=== PATIENT | female | born 1970 | race Caucasian/White ===

== ENCOUNTER 2021-07-20 23:25 | Inpatient (IN) | payer BC, SELFPAY ==
[~2021-07-20] VITALS: Ht 172.7 cm; Wt 78.5 kg
[2021-07-20 23:30] VITALS: BP 88/42
--- NOTE | 2021-07-20 23:30 | NUR ---
PT [facility]. TAKEN TO BED 9
--- NOTE | 2021-07-20 23:31 | NUR ---
Patient BIB by ALS from facility. C/O low blood pressure x today. Per reported, staff reported , patient had low blood pressure, started IV 18 G right forearm and given NSS bolus at the scence. Patient came to ER
--- NOTE | 2021-07-20 23:31 | NUR ---
When patient arrived to ER- Patient unable to speak, severe weakness right side. Called ERMTyree.
--- NOTE | 2021-07-20 23:32 | NUR ---
Dr. Alcaraz examining patient.
[2021-07-20] MEDS ORDERED: NACL 0.9% 2,000 ML IV ONE (23:40)
--- NOTE | 2021-07-20 23:44 | NUR ---
CODE BRAIN INITIATED. RADIOLOGY AWARE
--- NOTE | 2021-07-20 23:46 | NUR ---
PT TAKEN TO CT
--- NOTE | 2021-07-20 23:48 | NUR ---
CXR at bedside.
--- NOTE | 2021-07-21 00:04 | NUR ---
PT RETURN FROM CT
--- NOTE | 2021-07-21 00:05 | NUR ---
After patient came back from CT scan with Raiology tech and RN. Patient started woke up. A/O,X2, -see [facility] stoke assessment and Neuro assessment.
[2021-07-21 00:24] LABS: BASOPHILS % (AUTO) 0.4 % (0.0-2.0); EOSINOPHILS # (AUTO) 0.2 K/uL (0-0.4); EOSINOPHILS % (AUTO) 1.8 % (0.0-4.0); HEMATOCRIT 29.1 % (36-48); HEMOGLOBIN 9.1 g/dL (12.0-16.0); LYMPHOCYTES # (AUTO) 2.9 K/uL (2.5-16.5); LYMPHOCYTES % (AUTO) 28.5 % (20.5-51.1); MEAN CORPUSCULAR HEMOGLOBIN 22 pg (27-31); MEAN CORPUSCULAR HGB CONC 31 g/dL (33-37); MEAN CORPUSCULAR VOLUME 69.6 fL (80-94); MONOCYTES # (AUTO) 0.6 K/uL (0.8-1.0); MONOCYTES % (AUTO) 5.7 % (1.7-9.3); NEUTROPHILS # (AUTO) 6.5 K/uL (1.8-7.7); NEUTROPHILS % (AUTO) 63.6 % (42.2-75.2); PLATELET COUNT (AUTO) 635 K/uL (140-450); RED BLOOD CELL COUNT(AUTO) 4.17 MIL/uL (4.20-5.40); RED CELL DISTRIBUTION WIDTH 17.1 % (11.6-13.7); WHITE BLOOD COUNT (AUTO) 10.2 K/uL (4.8-10.8)
--- NOTE | 2021-07-21 00:25 | NUR ---
# 16 FR Austin catheter with 10 ml utilizing sterile technique. Immediate return of 20 ml yellow, clear urine noted. Bedside drainage bag placed below level of bladder. Urine sample collected and sent to lab. Pt tolerated procedure well.
[2021-07-21] MEDS ORDERED: PIPERACILLIN/TAZOBACTAM 3.375 GM in DEXTROSE 5% 50 ML IV ONE (00:35)
[2021-07-21] MEDS ORDERED: VANCOMYCIN 1,000 MG in DEXTROSE 5% 250 ML IV ONE (00:35)
[2021-07-21 00:40] LABS: APPEARANCE,URINE CLEAR (CLEAR); BILIRUBIN,URINE NEGATIVE (NEGATIVE); BLOOD, URINE NEGATIVE (NEGATIVE); COLOR,URINE YELLOW (YELLOW); LEUKOCYTE ESTERASE ,URINE TRACE (NEGATIVE); NITRITE, URINE POSITIVE (NEGATIVE); PH,URINE 5.5 (5.0-9.0); UGLUCOSE NEGATIVE (NEGATIVE)
[2021-07-21] MEDS ORDERED: PIPERACILLIN/TAZOBACTAM 3.375 GM VIAL IV ONE (00:43)
--- NOTE | 2021-07-21 00:46 | NUR ---
TELENEURO INITIATED PER DR. WEEKS
[2021-07-21 00:54] LABS: RBC,URINE 0-5 /HPF (0-5); WBC,URINE 60-80 /HPF (0-5)
[2021-07-21 00:57] LABS: BARBITURATE, URINE NEGATIVE ng/ml (NEG <=200)
--- NOTE | 2021-07-21 00:57 | NUR ---
RETURN CALL FROM NEUROLOGIST WHO SPOKE WITH DR. WEEKS
[2021-07-21 00:58] LABS: BENZODIAZEPINE, URINE POSITIVE ng/mL (NEG <=200); CANNABINOID, URINE NEGATIVE ng/mL (NEG <=50); COCAINE, URINE NEGATIVE ng/mL (NEG <=300); OPIATE, URINE POSITIVE ng/mL (NEG <=2000); PHENCYCLIDINE SCREEN,URINE NEGATIVE ng/mL (NEG <=25)
--- NOTE | 2021-07-21 01:02 | NUR ---
TELENEURO SPEAKING WITH PT
[2021-07-21 01:04] LABS: ALBUMIN 2.9 g/dL (3.4-5.0); ANION GAP 14.7 (8-16); CARBON DIOXIDE 23.3 mmol/L (21-32); CREATININE 1.5 mg/dL (0.6-1.3); TOTAL BILIRUBIN 0.5 mg/dL (0.0-1.0)
[2021-07-21] MEDS ORDERED: VANCOMYCIN 1,000 MG VIAL ONE (01:18)
--- NOTE | 2021-07-21 01:28 | NUR ---
COVID-19 swabs collected and sent to lab.
[2021-07-21] MEDS ORDERED: KETOROLAC 30 MG/ML VIAL IVP ONE (02:10)
--- NOTE | 2021-07-21 02:24 | NUR ---
Dr. Alcaraz at bedside to explain results and treatment plans.
[2021-07-21] MEDS ORDERED: DOCUSATE SODIUM 100 MG GELCAP PO PRN (02:30)
[2021-07-21] MEDS ORDERED: POTASSIUM CHLORIDE 10 MEQ TABER PO PRN (02:30)
[2021-07-21] MEDS ORDERED: MAGNESIUM OXIDE 400 MG TAB PO PRN (02:30)
[2021-07-21] MEDS ORDERED: ONDANSETRON 4 MG/2 ML VIAL IM/IVP PRN (02:30)
[2021-07-21] MEDS ORDERED: ACETAMINOPHEN 325 MG TAB PO PRN (02:30)
[2021-07-21] MEDS ORDERED: SODIUM PHOS / POTASSIUM PHOS 1 PKT PDR PO PRN (02:30)
[2021-07-21] MEDS ORDERED: LEVO0.1211 PO (02:48)
[2021-07-21] MEDS ORDERED: SYN.05 PO (02:48)
[2021-07-21] MEDS ORDERED: LISI-486 PO (02:48)
[2021-07-21] MEDS ORDERED: INSU100S45 SUBQ (02:48)
--- NOTE | 2021-07-21 02:48 | NUR ---
Reconcile Med reviewed.
--- NOTE | 2021-07-21 03:04 | NUR ---
Patient refused to stay in hospital. Dr. Alcaraz notified.
--- NOTE | 2021-07-21 03:07 | NUR ---
Report given to GARTH Cherry (Tele Nurse)
--- NOTE | 2021-07-21 03:15 | NUR ---
Dr. Alcaraz spoke with patient and explain that patient can not release from hospital.
--- NOTE | 2021-07-21 03:21 | NUR ---
Patient transferred to TELE room 110 A via gurney with EMT and RN.
[2021-07-21 03:57] VITALS: BP 107/59
[2021-07-21] MEDS: NACL 0.9% 1,000 ML IV SCH ×3 (03:57→22:30)
--- NOTE | 2021-07-21 03:57 | NUR ---
RECIEVED PT AAOX 3 TO 4 , W/ ON AND OFF CONFUSION FROM ER / GURNEY , TRANSFER TO BED , NID - RA - O2 SAT WNL . IV SITE INTACT AND PATENT . FALL RISK - PUT ON FALL PREVATION PROTOCOL - CALL LIGHT WITHIN REACH , NPO EXCEPTS MEDS , ADM . ASSESSMENT - DONE , WILL CONT . TO MONITOR . PT S/P W/ SKIN SPLINT ON R FOOT .
[2021-07-21] MEDS ORDERED: KCL 20 MEQ/WATER INJ PREMIX 200 ML IV SCH (05:30)
[2021-07-21 06:50] LABS: BASOPHILS % (AUTO) 0.2 % (0.0-2.0); EOSINOPHILS # (AUTO) 0.1 K/uL (0-0.4); EOSINOPHILS % (AUTO) 1.2 % (0.0-4.0); HEMATOCRIT 29.6 % (36-48); HEMOGLOBIN 9.1 g/dL (12.0-16.0); LYMPHOCYTES # (AUTO) 3.3 K/uL (2.5-16.5); LYMPHOCYTES % (AUTO) 29.3 % (20.5-51.1); MEAN CORPUSCULAR HEMOGLOBIN 22 pg (27-31); MEAN CORPUSCULAR HGB CONC 31 g/dL (33-37); MEAN CORPUSCULAR VOLUME 69.9 fL (80-94); MONOCYTES # (AUTO) 0.7 K/uL (0.8-1.0); MONOCYTES % (AUTO) 6.6 % (1.7-9.3); NEUTROPHILS % (AUTO) 62.7 % (42.2-75.2); PLATELET COUNT (AUTO) 592 K/uL (140-450); RED BLOOD CELL COUNT(AUTO) 4.23 MIL/uL (4.20-5.40); RED CELL DISTRIBUTION WIDTH 17.8 % (11.6-13.7); WHITE BLOOD COUNT (AUTO) 11.2 K/uL (4.8-10.8)
[2021-07-21] MEDS: MORPHINE SULFATE 2 MG/ML SYR IVP PRN ×3 (06:51→20:02)
--- NOTE | 2021-07-21 07:12 | NUR ---
BLOOD SUGAR CHECKED :81. WILL INFORM DOCTOR. WILL CONTINUE TO MONITOR
[2021-07-21 07:18] LABS: MAGNESIUM 2.1 mg/dL (1.8-2.4); PHOSPHORUS 4.6 mg/dL (2.5-4.9)
[2021-07-21 07:29] LABS: CREATININE 1.3 mg/dL (0.6-1.3); POTASSIUM 3.4 mmol/L (3.5-5.1)
--- NOTE | 2021-07-21 07:44 | NUR ---
ENDORSED - PT - STABLE - I TOLD TO YANA LIANG - TO UPDATE DR ABOUT BS .- HE VERBALIZES UNDERSTANDING .
--- NOTE | 2021-07-21 07:45 | NUR ---
RECEIVED PATIENT REPORT FROM COOK CANDY NURSE FOR CONTINUITY OF CARE. PT IS AOX4, ABLE TO MAKE NEEDS KNOWN. RESPIRATIONS EVEN AND UNLABORED. ON ROOM AIR AND NO DISTRESS NOTED. SKIN IS WARM, DRY, AND INTACT. IV SITE ON RFA 18 INFUSING FLUIDS ORDERED. IV INTACT AND PATENT. PATIENT DENIES PAIN AT THE MOMENT. NOTED SPLINT ON RIGHT FOOT. PLAN OF CARE DISCUSSED. SAFETY PRECAUTIONS IN PLACE. CALL LIGHT WITHIN REACH. WILL CONTINUE TO MONITOR.
[2021-07-21 08:00] VITALS: BP 94/59
[2021-07-21] MEDS: PANTOPRAZOLE 40 MG INJ VIAL IVP SCH (09:24)
--- NOTE | 2021-07-21 09:45 | NUR ---
ALL SCHEDULED MEDS GIVEN. PT IS STABLE. NO DISTRESS NOTED. WILL CONTINUE TO MONITOR.
[2021-07-21] MEDS ORDERED: INSULIN LISPRO SLIDING SCALE 100 UNITS/ML VIAL SUBQ PRN (11:45)
--- NOTE | 2021-07-21 11:51 | NUR ---
CHECKED PATIENT BLOOD SUGAR. BLOOD SUGAR WAS 23. NOTIFIED MD AND RECEIVED NEW ORDERS.
[2021-07-21] MEDS: DEXTROSE 50% 50 ML SYR IVP PRN (12:09)
--- NOTE | 2021-07-21 12:56 | NUR ---
RECHECKED BS AND ITS 93. BS IS STABLE. PT IS NOT IN DISTRESS. WILL CONTINUE TO MONITOR
--- NOTE | 2021-07-21 13:03 | NUR ---
DC [age]ANN[age] YRS OLD FEMALE PATIENT WAS ADMITTED FROM HOME WITH A DX OF UROSEPSIS. PATIENT HAS A HX OF SPINAL FUSION , SPINAL HERNIATION OPIATE ABUSE HTN AND DM. CXR SHOWED ENLARGED CARDIAC SILHOUETTE WITH PERIHILAR INTERSTITIAL PROMINENCE. CT HEAD NEGATIVE. ANKLE XRAY SHOWED OBLIQUES FRACTURE OF THE DISTAL FIBULA WITH 1 MM DISPLACEMENT. CONSULTED WITH ORTHO AND NEURO. DC PLAN PER MD RECOMMENDATIONS . CM TO FOLLOW
--- NOTE | 2021-07-21 15:15 | NUR ---
PATIENT HAS BEEN SCREENED AND CATEGORIZED MODERATE NUTRITION RISK. PATIENT WILL BE SEEN WITHIN 3-5 DAYS OF ADMISSION. / JOSE RAUL [address]
--- NOTE | 2021-07-21 15:16 | NUR ---
PATIENT COMPLAINED OF 8/10 RIGHT ANKLE PAIN. MEDICATED WITH PRN PAIN MEDS PER MD ORDERED
[2021-07-21] MEDS: ECOTRIN 81 MG TABEC PO SCH (15:20)
--- NOTE | 2021-07-21 15:26 | NUR ---
PATIENT REFUSED SCHEDULED MEDICATIONS. NOTIFIED MD AND IS AWARE OF THE SITUATION
[2021-07-21 16:00] VITALS: BP 100/69
[2021-07-21] MEDS: BLOOD GLUCOSE MONITORING 1 DEV DEV FS SCH ×2 (17:04→20:24)
--- NOTE | 2021-07-21 17:45 | NUR ---
CHECKED ON PATIENT. PATIENT REQUESTED ICE PACKED FOR FOOT. NO DISTRESS NOTED. WILL CONTINUE TO MONITOR.
--- NOTE | 2021-07-21 20:03 | NUR ---
PATIENT COMPLAINED OF SEVERE RIGHT ANKLE PAIN 8. MEDICATED WITH MORPHINE ORDERED.
--- NOTE | 2021-07-21 20:16 | NUR ---
CHECKED PATIENT BLOOD SUGAR :134 NO COVERAGE NEEDED.ATTENDED PATIENT NEEDS.PATIENT RESTING ON BED, CALL LIGHT WITHIN THE REACH, WILL CONTINUE TO MONITOR.
[2021-07-21] MEDS ORDERED: ATORVASTATIN 20 MG TAB PO SCH (21:00)
--- NOTE | 2021-07-21 23:20 | NUR ---
MADE ROUND TO PATIENT ROOM PATIENT IS RESTING ON BED. CALL LIGHT WITHIN THE REACH, WILL CONTINUE TO MONITOR
[2021-07-22] VITALS: BP 137/66
[2021-07-22] MEDS: NACL 0.9% 1,000 ML IV SCH ×2 (00:10→09:30)
[2021-07-22] MEDS: HYDROcodone/APAP 5/325 MG 1 TAB TAB PO PRN ×3 (00:32→11:41)
--- NOTE | 2021-07-22 01:35 | NUR ---
patient was complaining pain at 0032 ,medicated patient , at 0132 reassess patient is sleeping ,call light within the reach will continue to monitor
--- NOTE | 2021-07-22 04:30 | NUR ---
checked patient vital is stable, patient is sleeping .not any complain of pain at the movement .safety measure in place,call light within the reach, will continue to monitor
[2021-07-22] MEDS: DEXTROSE 50% 50 ML SYR IVP PRN (05:52)
--- NOTE | 2021-07-22 05:52 | NUR ---
BLOOD SUGAR CHECK WAS 37, DEXTROSE 50% ADMINISTERED PRN.
--- NOTE | 2021-07-22 05:53 | NUR ---
COMPLAINED OF MODERATE PAIN ON THE RIGHT ANKLE, NORCO PRN ADMINISTERED.
--- NOTE | 2021-07-22 06:15 | NUR ---
RECHECKED BLOOD SUGAR WAS 115, PATIENT IS AWAKE, ALERT NO SOB NOTED. RESPIRATION EVEN UNLABORED.
[2021-07-22] MEDS: BLOOD GLUCOSE MONITORING 1 DEV DEV FS SCH ×2 (06:32→11:49)
[2021-07-22 06:42] LABS: BASOPHILS % (AUTO) 0.5 % (0.0-2.0); EOSINOPHILS # (AUTO) 0.4 K/uL (0-0.4); HEMATOCRIT 29.2 % (36-48); LYMPHOCYTES # (AUTO) 2.9 K/uL (2.5-16.5); LYMPHOCYTES % (AUTO) 39.1 % (20.5-51.1); MEAN CORPUSCULAR HEMOGLOBIN 22 pg (27-31); MEAN CORPUSCULAR HGB CONC 31 g/dL (33-37); MONOCYTES # (AUTO) 0.5 K/uL (0.8-1.0); MONOCYTES % (AUTO) 6.4 % (1.7-9.3); NEUTROPHILS # (AUTO) 3.6 K/uL (1.8-7.7); PLATELET COUNT (AUTO) 553 K/uL (140-450); RED BLOOD CELL COUNT(AUTO) 4.17 MIL/uL (4.20-5.40); RED CELL DISTRIBUTION WIDTH 17.6 % (11.6-13.7); WHITE BLOOD COUNT (AUTO) 7.3 K/uL (4.8-10.8)
[2021-07-22 06:57] LABS: ANION GAP 11.2 (8-16); CARBON DIOXIDE 25.2 mmol/L (21-32); CREATININE 0.8 mg/dL (0.6-1.3); POTASSIUM 3.4 mmol/L (3.5-5.1)
[2021-07-22 07:16] LABS: CHOL/HDL RATIO 5.1 (1-4.5)
--- NOTE | 2021-07-22 07:23 | NUR ---
ENDORSED TO AM NURSE FOR CONTINUITY OF CARE. PATIENT IN STABLE CONDITION.
--- NOTE | 2021-07-22 07:30 | NUR ---
RECEIVED PATIENT REPORT FROM MUSIC THERAPIST NURSE FOR CONTINUITY OF CARE. PT IS AOX4, ABLE TO MAKE NEEDS KNOWN. RESPIRATIONS EVEN AND UNLABORED. ON ROOM AIR AND NO DISTRESS NOTED. SKIN IS WARM, DRY, AND INTACT. IV SITE ON RFA 18 INFUSING FLUIDS ORDERED. IV INTACT AND PATENT. PATIENT DENIES PAIN AT THE MOMENT. NOTED SPLINT ON RIGHT FOOT. PLAN OF CARE DISCUSSED. SAFETY PRECAUTIONS IN PLACE. CALL LIGHT WITHIN REACH. WILL CONTINUE TO MONITOR.
[2021-07-22 08:00] VITALS: BP 154/81
[2021-07-22] MEDS ORDERED: ATORVASTATIN 20 MG TAB PO SCH (09:00)
[2021-07-22] MEDS: ECOTRIN 81 MG TABEC PO SCH (09:00)
[2021-07-22] MEDS ORDERED: ECOTRIN 81 MG TABEC PO SCH (09:00)
--- NOTE | 2021-07-22 09:30 | NUR ---
ALL SCHEDULED MEDS WERE GIVEN EXCEPT ASA. PT REFUSED ASA. NOTIFIED MD AND IS AWARE.
[2021-07-22] MEDS: PANTOPRAZOLE 40 MG INJ VIAL IVP SCH (09:34)
--- NOTE | 2021-07-22 11:35 | NUR ---
DR. EDUARDO AT PATIENT'S BEDSIDE DISCUSSING PLAN OF CARE.
--- NOTE | 2021-07-22 11:49 | NUR ---
BLOOD GLUCOSE CHECK WAS 108. DOES NOT NEED INSULIN COVERAGE
[2021-07-22] MEDS ORDERED: CEPH-588 PO (14:07)
[2021-07-22] MEDS ORDERED: ATOR20TA PO (14:07)
[2021-07-22] MEDS ORDERED: IBUP-1842 PO (14:13)
[2021-07-22 14:36] VITALS: BP 154/81
--- NOTE | 2021-07-22 15:10 | NUR ---
ENDORSED DISCHARGE INSTRUCTIONS TO PATIENT. PT VERBALIZED UNDERSTANDING AND SIGNED DISCHARGE FORMS.
--- NOTE | 2021-07-22 15:20 | NUR ---
PT DISCHARGED OFF THE UNIT. PICKED UP AT THE FRONT OF THE LOBBY BY [facility]
== END 2021-07-22 15:20 | DRG 562 ==
LOC: MED 23:25 → MTU 07-21 01:39
PROVIDERS: ADMIT Hospitalist; ATTEND Hospitalist
PROC: 2W3LX1Z Immobilization of Right Lower Extremity using Splint (ICD-10-PCS; principal; 2021-07-21)
DX: S82.431A Displaced oblique fracture of shaft of right fibula, initial encounter for closed fracture (principal); N17.0 Acute kidney failure with tubular necrosis; N39.0 Urinary tract infection, site not specified; R47.01 Aphasia; E44.0 Moderate protein-calorie malnutrition; E86.0 Dehydration; E78.5 Hyperlipidemia, unspecified; R53.1 Weakness; E87.6 Hypokalemia; D50.9 Iron deficiency anemia, unspecified; E10.9 Type 1 diabetes mellitus without complications; E06.3 Autoimmune thyroiditis; I10 Essential (primary) hypertension; Z20.822 Contact with and (suspected) exposure to COVID-19; M94.20 Chondromalacia, unspecified site; I95.9 Hypotension, unspecified; F11.10 Opioid abuse, uncomplicated; R29.810 Facial weakness; E03.9 Hypothyroidism, unspecified; W18.39XA Other fall on same level, initial encounter; E83.51 Hypocalcemia; Y93.89 Activity, other specified; Y92.89 Other specified places as the place of occurrence of the external cause; Y99.8 Other external cause status; Z88.2 Allergy status to sulfonamides; Z79.899 Other long term (current) drug therapy; Z98.1 Arthrodesis status; Z98.891 History of uterine scar from previous surgery; Z68.26 Body mass index [BMI] 26.0-26.9, adult
CPT/HCPCS: 36415; 70450; 71045; 73610; 80048; 80053; 80305; 81001; 82140; 82948; 83036; 83605; 83735; 83880; 84100; 84484; 85025; 87040; 87081; 87086; 93005; 96365; 96367; 96375; 99291; C9113; G0482; J0696; J1815; J1885; J2270; J2543; J3370; J3480; J7060; Q0092; Q9967